=== PATIENT | male | born 1965 | race Caucasian/White ===

== ENCOUNTER 2021-08-31 09:33 | Emergency (ER) | payer SELFPAY ==
[~2021-08-31] VITALS: Ht 167.6 cm; Wt 72.6 kg
[2021-08-31 09:40] VITALS: BP 128/84
[2021-08-31] MEDS ORDERED: ASPIRIN 325 MG TAB PO ONE (09:55)
[2021-08-31] MEDS ORDERED: MORPHINE SULFATE 2 MG/ML SYR IVP ONE (10:05)
[2021-08-31] MEDS ORDERED: ONDANSETRON 4 MG/2 ML VIAL IVP ONE (10:05)
[2021-08-31 10:38] LABS: BASOPHILS # (AUTO) 0.1 K/uL (0.00-0.22); BASOPHILS % (AUTO) 1.4 % (0.0-2.0); EOSINOPHILS # (AUTO) 0.1 K/uL (0-0.4); HEMATOCRIT 34.6 % (36-52); HEMOGLOBIN 11.6 g/dL (12.0-18.0); LYMPHOCYTES # (AUTO) 1.2 K/uL (2.0-11.5); LYMPHOCYTES % (AUTO) 16.5 % (20.5-51.1); MEAN CORPUSCULAR HEMOGLOBIN 27 pg (27-31); MEAN CORPUSCULAR HGB CONC 33 g/dL (33-37); MEAN CORPUSCULAR VOLUME 79.3 fL (80-94); MONOCYTES # (AUTO) 0.7 K/uL (0.8-1.0); MONOCYTES % (AUTO) 9.3 % (1.7-9.3); NEUTROPHILS # (AUTO) 5.1 K/uL (1.8-7.7); NEUTROPHILS % (AUTO) 71.8 % (42.2-75.2); PLATELET COUNT (AUTO) 228 K/uL (140-450); RED BLOOD CELL COUNT(AUTO) 4.36 MIL/uL (4.20-6.10); RED CELL DISTRIBUTION WIDTH 13.2 % (11.6-13.7); WHITE BLOOD COUNT (AUTO) 7.1 K/uL (4.8-10.8)
[2021-08-31 10:59] LABS: ALBUMIN 3.7 g/dL (3.4-5.0); ANION GAP 14.6 (8-16); CARBON DIOXIDE 29.4 mmol/L (21-32); CREATININE 0.8 mg/dL (0.6-1.3); TOTAL BILIRUBIN 1.3 mg/dL (0.0-1.0)
[2021-08-31 11:01] LABS: PROTHROMBIN TIME 10.4 secs (10.8-13.4)
[2021-08-31] MEDS ORDERED: LEVO750T51 PO (12:52)
[2021-08-31] MEDS ORDERED: ALBU0.0912 INH (12:52)
[2021-08-31 13:30] VITALS: BP 110/72
[2021-09-02 06:08] LABS: HEPATITIS A ANTIBODY IGM Negative (Negative); HEPATITIS B CORE AB TOTAL Positive (Negative); HEPATITIS B SURFACE ANTIBODY Non Reactive (.)
[2021-09-02 08:08] LABS: HEPATITIS B SURFACE ANTIGEN Positive (Negative)
== END 2021-08-31 13:30 | disposition home or self-care (01) ==
LOC: MED 09:33
DX: J18.9 Pneumonia, unspecified organism (principal); R74.01 Elevation of levels of liver transaminase levels
CPT/HCPCS: 36415; 71045; 76705; 80053; 83880; 84484; 85025; 85610; 85730; 86704; 86706; 86708; 86709; 86803; 87340; 93005; 96374; 96375; 99285; J2270; J2405; Q0092